=== PATIENT | female | born 1940 | race Caucasian/White ===

== ENCOUNTER 2017-06-15 08:32 | Day surgery (SDC) | payer MEDICARE, OTHER ==
[~2017-06-15 08:32] MED LIST: LACTATED RINGERS 1,000 ML IV ONE
[2017-06-15] MEDS ORDERED: MIDAZOLAM 2 MG/2 ML VIAL IVP ONE (11:09)
[2017-06-15] MEDS ORDERED: fentaNYL 100 MCG/2 ML VIAL IVP ONE (11:09)
[2017-06-15 12:09] VITALS: BP 110/77
== END 2017-06-15 08:33 | disposition home or self-care (01) ==
LOC: SDS 08:32
PROVIDERS: ATTEND Surgery
PROC: 0DB58ZX Excision of Esophagus, Via Natural or Artificial Opening Endoscopic, Diagnostic (ICD-10-PCS; principal; 2017-06-15 09:45)
PROC: 0DBL8ZX Excision of Transverse Colon, Via Natural or Artificial Opening Endoscopic, Diagnostic (ICD-10-PCS; 2017-06-15 09:45)
DX: D50.9 Iron deficiency anemia, unspecified (principal); K29.70 Gastritis, unspecified, without bleeding; K44.9 Diaphragmatic hernia without obstruction or gangrene; K22.8 Other specified diseases of esophagus; D12.3 Benign neoplasm of transverse colon; K64.8 Other hemorrhoids; K57.30 Diverticulosis of large intestine without perforation or abscess without bleeding; Z85.3 Personal history of malignant neoplasm of breast; Z79.82 Long term (current) use of aspirin
CPT/HCPCS: 43239; 45385; J7120

== ENCOUNTER 2017-10-13 13:26 | Outpatient (CLI) | payer MEDICARE, OTHER ==
--- NOTE | 2017-10-13 15:21 | XRAY Report ---
THREE VIEW LEFT TOES: 10/13/2017 CLINICAL INDICATION: Pain in the 1st and 2nd toes. FINDINGS: AP, lateral, and oblique views of the left toes demonstrate no evidence of acute fracture or dislocation. Osteoarthritis is present, with hallux valgus. No radiopaque foreign body is seen in the soft tissues. IMPRESSION: OSTEOARTHRITIS, WITH HALLUX VALGUS. NO EVIDENCE OF ACUTE FRACTURE. TD: 10/13/2017 15:19
--- NOTE | 2017-10-13 15:22 | XRAY Report ---
THREE VIEW LEFT KNEE: 10/13/2017 CLINICAL INDICATION: Pain. FINDINGS: AP, lateral, sunrise views of the left knee demonstrate a total knee replacement in place. There is no evidence of acute fracture or hardware complication. IMPRESSION: LEFT KNEE REPLACEMENT IN PLACE. TD: 10/13/2017 15:21
== END 2017-10-13 13:27 | disposition home or self-care (01) ==
LOC: DI.S 13:26
PROVIDERS: ATTEND Physician Assistant
DX: M19.072 Primary osteoarthritis, left ankle and foot (principal); M20.12 Hallux valgus (acquired), left foot; M25.562 Pain in left knee; Z96.652 Presence of left artificial knee joint
CPT/HCPCS: 73660

== ENCOUNTER 2017-10-17 10:12 | Outpatient (CLI) | payer MEDICARE, OTHER ==
[2017-10-17 18:33] LABS: ALBUMIN 3.6 g/dL (3.2-5.5); ALBUMIN/GLOBULIN RATIO 1.1 (1.0-2.2); BILIRUBIN,TOTAL 0.5 mg/dL (0.2-1.0); CALCIUM 9.1 mg/dL (8.5-10.3); CREATININE 0.9 mg/dL (0.4-1.0); TOTAL PROTEIN 6.9 g/dL (6.7-8.2)
[2017-10-17 18:40] LABS: T4 (THYROXINE) 11.72 ug/dL (6.09-12.23)
[2017-10-17 18:43] LABS: THYROID STIMULATING HORMONE < 0.08 uIU/mL (0.34-5.60)
[2017-10-17 18:50] LABS: TOTAL T3 0.93 ng/mL (0.87-1.78)
== END 2017-10-17 10:13 | disposition home or self-care (01) ==
LOC: LAB.F 10:12
PROVIDERS: ATTEND Physician Assistant
DX: E03.9 Hypothyroidism, unspecified (principal); K29.70 Gastritis, unspecified, without bleeding; I10 Essential (primary) hypertension
CPT/HCPCS: 36415; 80053; 84436; 84443; 84480

== ENCOUNTER 2018-03-15 11:41 | Outpatient (CLI) | payer MEDICARE, OTHER ==
[2018-03-15 17:40] LABS: BASOPHILS # (AUTO) 0.1 10^3/uL (0.0-0.1); BASOPHILS % (AUTO) 1.7 %; EOSINOPHILS # (AUTO) 0.1 10^3/uL (0.0-0.7); EOSINOPHILS % (AUTO) 2.1 %; HGB - HEMOGLOBIN 11.2 g/dL (12.0-16.0); LYMPHOCYTES # (AUTO) 1.3 10^3/uL (1.5-3.5); LYMPHOCYTES % (AUTO) 21.6 %; MEAN CORPUSCULAR HGB CONC 32.8 g/dL (32.0-36.0); MEAN CORPUSCULAR VOLUME 76.1 fL (81.0-99.0); MEAN PLATELET VOLUME 7.5 fL (7.9-10.8); MONOCYTES # (AUTO) 0.8 10^3/uL (0.0-1.0); MONOCYTES % (AUTO) 13.4 %; NEUTROPHILS # (AUTO) 3.7 10^3/uL (1.5-6.6); NEUTROPHILS % (AUTO) 61.2 %; PLT - PLATELET COUNT 428 10^3/uL (130-450); RED BLOOD COUNT 4.47 10^6/uL (4.20-5.40); RED CELL DISTRIBUTION WIDTH 19.4 % (12.0-15.0)
[2018-03-15 18:16] LABS: % IRON SATURATION 7 % (20-50); ALBUMIN 3.9 g/dL (3.2-5.5); ALBUMIN/GLOBULIN RATIO 1.2 (1.0-2.2); ALKALINE PHOSPHATASE 79 IU/L (42-121); ALT ALANINE AMINOTRANSFERASE 12 IU/L (10-60); AST ASPARTATE AMINOTRANSFERASE 19 IU/L (10-42); BILIRUBIN,TOTAL 0.5 mg/dL (0.2-1.0); BUN - BLOOD UREA NITROGEN 15 mg/dL (6-20); CALCIUM 9.1 mg/dL (8.5-10.3); CARBON DIOXIDE - CO2 26 mmol/L (21-32); CHLORIDE 101 mmol/L (101-111); CREATININE 0.9 mg/dL (0.4-1.0); GFR - MDRD 61 (>89); GLUCOSE 86 mg/dL (70-100); IRON 36 ug/dL (28-170); SODIUM 136 mmol/L (135-145); TOTAL IRON BINDING CAPACITY 493 ug/dL (250-450); TOTAL PROTEIN 7.2 g/dL (6.7-8.2); TRANSFERRIN 352 mg/dL (192-382)
[2018-03-15 18:17] LABS: CRP - C-REACTIVE PROTEIN < 1.0 mg/dL (0-1.0); THYROID STIMULATING HORMONE < 0.08 uIU/mL (0.34-5.60)
[2018-03-15 18:19] LABS: FREE T4 (FREE THYROXINE) 1.69 ng/dL (0.58-1.64)
[2018-03-15 18:23] LABS: FERRITIN 5.6 ng/mL (11.0-306.8)
== END 2018-03-15 11:42 | disposition home or self-care (01) ==
LOC: LAB.F 11:41
PROVIDERS: ATTEND Registered Nurse
DX: E03.9 Hypothyroidism, unspecified (principal); E61.1 Iron deficiency; E55.9 Vitamin D deficiency, unspecified; M15.9 Polyosteoarthritis, unspecified
CPT/HCPCS: 36415; 80053; 82306; 82728; 83540; 84439; 84443; 84466; 84481; 85025; 85651; 86140

== ENCOUNTER 2018-07-15 13:03 | Outpatient (CLI) | payer MEDICARE, OTHER ==
--- NOTE | 2018-07-16 11:13 | XRAY Report ---
Reason: LUMBAGO WITH SCIATICA,RIGHT SIDE Procedure Date: 07/15/2018 Accession Number: [id number] / [id number] Procedure: XR - Lumbar Spine 2 View CPT Code: FULL RESULT: EXAM: LUMBOSACRAL SPINE RADIOGRAPHY EXAM DATE: 07/15/2018 01:33 PM. CLINICAL HISTORY: LUMBAGO WITH SCIATICA,RIGHT SIDE. COMPARISONS: None. TECHNIQUE: 2 views. FINDINGS: Alignment: Subtle levoscoliosis of the thoracolumbar spine. Grade 1 posterior listhesis of T11 on T12 and T12 on L1. Bones: Five [id number] lumbar vertebral bodies are present. No fractures or bone lesions. Disks: Severe degenerative disk disease at T12-L1 and mild to moderate degenerative disk disease at L1-L2, L4 and L5 and mild degenerative disk disease at L5-S1. Facets: Facet arthrosis throughout the lumbar spine. Sacroiliac Joints: Unremarkable. Soft Tissues: Normal. The visualized bowel gas pattern is normal. IMPRESSION: 1. Grade 1 posterior listhesis of T11 on T12 and T12 on L1. 2. Subtle levoscoliosis of the thoracolumbar spine. 3. Multilevel mild to severe degenerative disk disease, as above. 4. Facet arthrosis throughout the lumbar spine. RAD[facility]
== END 2018-07-15 13:04 | disposition home or self-care (01) ==
LOC: DI 13:03
PROVIDERS: ATTEND Physician Assistant
DX: M51.17 Intervertebral disc disorders with radiculopathy, lumbosacral region (principal); M47.26 Other spondylosis with radiculopathy, lumbar region; M41.85 Other forms of scoliosis, thoracolumbar region
CPT/HCPCS: 72100

== ENCOUNTER 2018-11-06 11:27 | Outpatient (CLI) | payer MEDICARE, OTHER ==
--- NOTE | 2018-11-06 15:16 | Ultrasound Report ---
Reason: ASYMPTOMATIC VARICOSE VEINS OF BILATERAL LOWER EXR Procedure Date: 11/06/2018 Accession Number: [id number] / [id number] Procedure: US - Duplex Ext Veins Bilateral CPT Code: FULL RESULT: EXAM: BILATERAL LOWER EXTREMITY VENOUS ULTRASOUND EXAM DATE: 11/06/2018 11:32 AM. CLINICAL HISTORY: Asymptomatic varicose veins of bilateral lower extremities. COMPARISON: None. TECHNIQUE: Real-time sonographic vascular imaging was performed by the greenhouse manager through the lower extremities utilizing both color-flow and Doppler spectral analysis. Multiple route sales representative static images were saved for review. FINDINGS: Right: Common Femoral Vein (CFV): Normal. CFV-GSV Junction: Normal. Profunda Femoral Vein (PFV): Normal. Femoral Vein (FV) Prox: Normal. Femoral Vein (FV) Mid: Normal. Femoral Vein (FV) Dist: Normal. Popliteal Vein: Normal. Posterior Tibial Veins: Normal. Peroneal Veins: Normal. Left: Common Femoral Vein (CFV): Normal. CFV-GSV Junction: Normal. Profunda Femoral Vein (PFV): Normal. Femoral Vein (FV) Prox: Normal. Femoral Vein (FV) Mid: Normal. Femoral Vein (FV) Dist: Normal. Popliteal Vein: Normal. Posterior Tibial Veins: There is thrombosis of one of the left posterior tibial veins, portions of which are nonocclusive by color Doppler and other portions of which are occlusive, findings confirmed by noncompressibility. Peroneal Veins: Normal. Other: None. IMPRESSION: Occlusive and nonocclusive venous thrombosis of the left posterior tibial vein. [facility] The call report notification system was initiated by Dr. Ruy Tavera at 03:13 PM on 11/06/2018. ADDENDUM: 11/06/18 15:17 The above call report findings were discussed with Becky Escobedo by Dr. Ruy Tavera at 03:17 PM on 11/06/2018.
== END 2018-11-06 11:28 | disposition home or self-care (01) ==
LOC: DI 11:27
PROVIDERS: ATTEND Nurse Practitioner Family
DX: I82.442 Acute embolism and thrombosis of left tibial vein (principal)
CPT/HCPCS: 93970

== ENCOUNTER 2018-12-19 12:15 | Outpatient (CLI) | payer MEDICARE, OTHER ==
--- NOTE | 2018-12-19 15:51 | XRAY Report ---
Reason: PAIN OF RIGHT SHOULDER JOINT Procedure Date: 12/19/2018 Accession Number: [id number] / [id number] Procedure: XR - Shoulder 3 View RT CPT Code: FULL RESULT: EXAM: RIGHT SHOULDER RADIOGRAPHY EXAM DATE: 12/19/2018 12:31 PM. CLINICAL HISTORY: pain of right shoulder joint. COMPARISON: None. TECHNIQUE: 3 views. FINDINGS: Bones: Normal. No fracture or bone lesion. Joints: The glenohumeral and acromioclavicular joints are normally located. There are degenerative changes of the AC joint. Soft tissues: The visualized hemithorax is unremarkable. No soft tissue swelling. IMPRESSION: Degenerative changes of the AC joint. [facility]
== END 2018-12-19 12:16 | disposition home or self-care (01) ==
LOC: DI 12:15
PROVIDERS: ATTEND Nurse Practitioner Family
DX: M19.011 Primary osteoarthritis, right shoulder (principal)

== ENCOUNTER 2019-02-18 12:57 | Outpatient (CLI) | payer MEDICARE, OTHER ==
--- NOTE | 2019-02-18 22:00 | Ultrasound Report ---
Reason: ACUTE DEEP VEIN THROMBOSIS OF LOWER LIMB Procedure Date: 02/18/2019 Accession Number: [id number] / [id number] Procedure: US - Duplex Ext Veins Left CPT Code: FULL RESULT: EXAM: LEFT LOWER EXTREMITY VENOUS ULTRASOUND EXAM DATE: 02/18/2019 02:07 PM. CLINICAL HISTORY: ACUTE DEEP VEIN THROMBOSIS OF LOWER LIMB. COMPARISON: DUPLEX EXT VEINS BILATERAL 11/06/2018 11:32 AM. TECHNIQUE: Real-time sonographic vascular imaging was performed by the astronomy instructor through the lower extremity utilizing both color-flow and Doppler spectral analysis. Multiple outside sales account representative static images were saved for review. FINDINGS: Common Femoral Vein (CFV): Normal. CFV-GSV Junction: Normal. Profunda Femoral Vein (PFV): Normal. Femoral Vein (FV) Prox: Normal. Femoral Vein (FV) Mid: Normal. Femoral Vein (FV) Dist: Normal. Popliteal Vein: Normal. Posterior Tibial Veins: Normal. Peroneal Veins: Normal. Contralateral Side CFV: Normal. Other: None. IMPRESSION: No evidence for deep venous thrombosis. Previous left posterior tibial vein thrombus has resolved. [facility]
== END 2019-02-18 12:58 | disposition home or self-care (01) ==
LOC: DI 12:57
PROVIDERS: ATTEND Family Medicine
DX: I82.409 Acute embolism and thrombosis of unspecified deep veins of unspecified lower extremity (principal)

== ENCOUNTER 2019-08-01 10:42 | Emergency (ER) | payer MEDICARE, OTHER ==
[2019-08-01 10:52] VITALS: BP 114/87
--- NOTE | 2019-08-01 12:12 | ED Physician Documentation ---
PD HPI UPPER EXT INJURY - Stated complaint Stated Complaint: RT THUMB LAC - Chief complaint Chief Complaint: Laceration - History obtained from History obtained from: Patient - History of Present Illness Location: Right, Finger Type of injury: Laceration (was standing on chair and slipped, catching side of thumb on cuphook, with tearing laceration to side of thumb.) Where injury occurred: Home Timing - onset: Today Timing - details: Abrupt onset Worsened by: Moving, Palpating Associated symptoms: Other (laceration the length of side of thumb.). 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 - Present Medications Home Medications: Ambulatory Orders Medication Instructions Recorded Confirmed Aspirin [Aspirin EC] 81 mg PO DAILY 06/14/17 06/14/17 Gabapentin [Neurontin] 600 mg PO DAILY 06/14/17 06/14/17 Levothyroxine Sodium [Synthroid] 150 mcg PO DAILY 06/14/17 06/14/17 Multivit with Calcium,Iron,Min 1 each PO DAILY 06/14/17 06/14/17 [Multiple Vitamins For Women] - Allergies Allergies/Adverse Reactions: Allergies Allergy/AdvReac Type Severity Reaction Status Date / Time No Known Drug Allergies Allergy Verified 08/01/19 10:52 - Social History Does the pt smoke?: No Smoking Status: Never smoker Does the pt drink ETOH?: No Does the pt have substance abuse?: No PD ED PE NORMAL - Vitals Vital signs reviewed: Yes - General General: Alert and oriented X 3, No acute distress, Well developed/nourished - Derm Derm: Normal color, Warm and dry - Extremities Extremities: Other (ulnar side of right thumb with laceration from MCP to just past DIP, exposing side of muscle and tendon, but no involvement of the deep structures. Small vein seen the length of the wound without tear. She has sensation at tip of thumb. Able to flex and extend well without problems. ) - Neuro Neuro: Alert and oriented X 3, No motor deficit, No sensory deficit Results - Vitals Vitals: Vital Signs - 24 hr 08/01/19 10:48 Temperature 36.5 C Heart Rate 82 Respiratory 18 Rate Blood Pressure 114/87 H O2 Saturation 96 Oxygen O2 Source Room air Procedures - Laceration (location) right thumb laterally on ulnar side. Length in cm: 4 Wound type: Linear, Into subcut fat, Clean Neurovascular status: Sensory intact, Motor intact, Vascular intact Tendon involvement: Tendon intact Anesthesia: Lidocaine 2% Wound Preparation: Irrigated copiously NS, Wound explored, To the base, Wound edges modified. No: FB identified Skin layer closure: Nylon, Running, Size #-0 - enter number (4), Sutures - enter # (14) Other: Patient tolerated well, No complications, Neurovascular intact, Tetanus UTD Complexity: Simple PD MEDICAL DECISION MAKING - ED course Complexity details: considered differential (lac lateral right thumb without deep structures involved. Sutured without problems. ), d/w patient Departure - Departure Disposition: 01 Home, Self Care Clinical Impression: Laceration of right thumb Qualifiers: Encounter type: initial encounter Damage to nail status: with damage Foreign body presence: without foreign body Qualified Code(s): S61.111A - Laceration without foreign body of right thumb with damage to nail, initial encounter Condition: Stable Record reviewed to determine appropriate education?: Yes Instructions: ED Laceration Hand Follow-Up: Rosas Stoll MD [Primary Care Provider] - Comments: It is okay to wash and shower. Clean off the wound twice a day with soap and water, or peroxide and water. Apply some antibiotic ointment to it to keep it moist. Also to watch for signs of infection such as purulence, redness or increasing pain. Return to your primary care or the ER at the specified time for suture removal. Suture removal 10 to 14 days. Gentle range of motion and progress use of the thumb even while the sutures are in place so it is not as stiff. Tylenol if needed for pains. Discharge Date/Time: 08/01/19 13:48
[2019-08-01] MEDS ORDERED: LIDOCAINE 2% 10 ML MDV SUBQ STA (12:39)
[2019-08-01] MEDS ORDERED: LIDOCAINE 2% 10 ML MDV ONE (12:41)
== END 2019-08-01 13:48 | disposition home or self-care (01) ==
LOC: ED 10:42
DX: S61.111A Laceration without foreign body of right thumb with damage to nail, initial encounter (principal); W26.8XXA Contact with other sharp object(s), not elsewhere classified, initial encounter; Y93.89 Activity, other specified; Y92.009 Unspecified place in unspecified non-institutional (private) residence as the place of occurrence of the external cause; Z79.82 Long term (current) use of aspirin
CPT/HCPCS: 12002; 99283

== ENCOUNTER 2019-11-14 14:47 | Outpatient (CLI) | payer MEDICARE, OTHER ==
--- NOTE | 2019-11-14 17:07 | Ultrasound Report ---
Reason: PAIN IN RT LOWER LEG. Procedure Date: 11/14/2019 Accession Number: [id number] / [id number] Procedure: US - Duplex Ext Veins Right CPT Code: Final Report FULL RESULT: EXAM: RIGHT LOWER EXTREMITY VENOUS ULTRASOUND EXAM DATE: 11/14/2019 04:29 PM. CLINICAL HISTORY: PAIN IN RT LOWER LEG. COMPARISON: None. TECHNIQUE: Real-time sonographic vascular imaging was performed by the calciminer through the lower extremity utilizing both color-flow and Doppler spectral analysis. Multiple bottling equipment sales representative static images were saved for review. FINDINGS: Common Femoral Vein (CFV): Normal. CFV-GSV Junction: Normal. Profunda Femoral Vein (PFV): Normal. Femoral Vein (FV) Prox: Normal. Femoral Vein (FV) Mid: Normal. Femoral Vein (FV) Dist: Normal. Popliteal Vein: Normal. Posterior Tibial Veins: Normal. Peroneal Veins: Normal. Contralateral Side CFV: Normal. Other: In region of palpable abnormality there is some mild soft tissue edema, but no mass or fluid collections.. IMPRESSION: No evidence for deep venous thrombosis in the right lower extremity. [facility]
== END 2019-11-14 14:48 | disposition home or self-care (01) ==
LOC: DI 14:47
PROVIDERS: ATTEND Nurse Practitioner Family
DX: M79.661 Pain in right lower leg (principal)

== ENCOUNTER 2020-04-14 13:47 | Outpatient (CLI) | payer MEDICARE, OTHER ==
[2020-04-14] MEDS ORDERED: IOVERSOL 320 50 ML VIAL ONE (13:59)
[2020-04-14] MEDS ORDERED: IOVERSOL 320 100 ML VIAL IVP ONE ×2 (13:59→17:44)
[2020-04-14 14:33] LABS: CALCIUM 9.2 mg/dL (8.5-10.3); CREATININE 0.9 mg/dL (0.4-1.0)
--- NOTE | 2020-04-14 16:15 | CT Report ---
PROCEDURE: Abdomen/Pelvis W INDICATIONS: UMBILICAL HERNIA CONTRAST: IV CONTRAST: Optiray 320 ml: 100 PO CONTRAST: Optiray 320 ml50 TECHNIQUE: After the administration of contrast, 5 mm thick sections acquired from the diaphragms to the sym physis. 5 mm thick coronal and sagittal reformats were acquired. For radiation dose reduction, the following was used: automated exposure control, adjustment of mA and/or kV according to patient size . COMPARISON: None. FINDINGS: Image quality: Excellent. ABDOMEN: Lung bases: Lung bases are clear. Heart size is normal. Solid organs: Liver and spleen are normal in size and enhancement. Gallbladder is within normal knutson its Biliary system is non dilated. There is a 16 mm low-density focus within the pancreatic body/nec k junction (series 3 image 32). There is a 12 mm low-density focus within the lateral aspect of the p ancreatic head (series 3 image 37). No evidence of pancreatic ductal dilatation. No adrenal nodules. Kidneys demonstrate normal size and enhancement, without hydronephrosis. Peritoneum and bowel: There is a large hiatal hernia. Bowel loops demonstrate normal wall thickness a nd caliber. No free fluid or air. Nodes and vessels: No retroperitoneal or mesenteric adenopathy by size criteria. Aorta and inferior vena cava are normal in size. Miscellaneous: A left anterior paramedian fat-containing supraumbilical hernia is present measuring 8 2 mm. There is moderate stranding as well as a small amount of fluid within the fat of the hernia. Th ere is fat stranding within the mesentery just deep to this hernia spanning roughly 66 mm (series 3 i mage 43). PELVIS: Genitourinary: Bladder wall thickness is normal. Miscellaneous: No inguinal hernias or adenopathy. Bones: No suspicious bony lesions. No vertebral body compression fractures. IMPRESSION: 1. Indeterminate low-density foci within the pancreatic parenchyma as described above. Initial furthe r assessment with pancreatic protocol MRI with and without intravenous contrast is recommended. 2. Fat-containing supraumbilical hernia which demonstrates evidence of incarceration, which also exte nds posteriorly to involve the underlying anterior abdominal wall mesenteric fat. 3. Large hiatal hernia. Reviewed by: Teresa Delgado MD on 04/14/2020 4:14 PM PDT Approved by: Teresa Delgado MD on 04/14/2020 4:14 PM PDT Station ID: [id number]
[2020-04-14] MEDS ORDERED: IOVERSOL 320 50 ML VIAL PO ONE (17:44)
== END 2020-04-14 13:48 | disposition home or self-care (01) ==
LOC: DI 13:47
PROVIDERS: ATTEND Nurse Practitioner Family
DX: R93.3 Abnormal findings on diagnostic imaging of other parts of digestive tract (principal); K44.9 Diaphragmatic hernia without obstruction or gangrene; K42.0 Umbilical hernia with obstruction, without gangrene; K42.9 Umbilical hernia without obstruction or gangrene
CPT/HCPCS: 36415; 74177; 80048; Q9967

== ENCOUNTER 2020-04-18 13:56 | Emergency (ER) | payer MEDICARE, OTHER ==
--- NOTE | 2020-04-18 15:05 | ED Physician Documentation ---
PD HPI LOWER EXT INJURY - Stated complaint Stated Complaint: R KNEE PX - Chief complaint Chief Complaint: Ext Problem - History obtained from History obtained from: Patient - History of Present Illness PD HPI LOW EXT INJURY LOCATION: Right, Knee Type of injury: Fall (she was getting up off toilet and her right foot was somewhat asleep from sitting, and it gave out, causing her to land onto right knee anteriorly. Minimally struck forehead. No LOC. Has large local swelling without minutes anterior knee.) Where injury occurred: Home Timing - onset: Today (this morning) Timing - details: Abrupt onset, Still present Worsened by: Moving, Palpating Associated symptoms: Swelling. 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 - Present Medications Home Medications: Ambulatory Orders Medication Instructions Recorded Confirmed Aspirin [Aspirin EC] 81 mg PO DAILY 06/14/17 06/14/17 Gabapentin [Neurontin] 600 mg PO DAILY 06/14/17 06/14/17 Levothyroxine Sodium [Synthroid] 150 mcg PO DAILY 06/14/17 06/14/17 Multivit with Calcium,Iron,Min 1 each PO DAILY 06/14/17 06/14/17 [Multiple Vitamins For Women] - Allergies Allergies/Adverse Reactions: Allergies Allergy/AdvReac Type Severity Reaction Status Date / Time No Known Drug Allergies Allergy Verified 08/01/19 10:52 - Social History Does the pt smoke?: No Smoking Status: Never smoker Does the pt drink ETOH?: No Does the pt have substance abuse?: No PD ED PE NORMAL - Vitals Vital signs reviewed: Yes - General General: Alert and oriented X 3, No acute distress, Well developed/nourished - HEENT HEENT: Atraumatic (no tenderness nor swelling noted on forehead. ), PERRL, EOMI - Neck Neck: Supple, no meningeal sign, No bony TTP - Derm Derm: Normal color, Warm and dry - Extremities Extremities: Other (right knee anteriorly with large local swelling prepatellar area. Prior knee replacement scar noted. ) - Neuro Neuro: No motor deficit, No sensory deficit Results - Vitals Vitals: Vital Signs - 24 hr 04/18/20 04/18/20 14:48 16:02 Temperature 36.3 C L 36.9 C Heart Rate 68 80 Respiratory 20 18 Rate Blood Pressure 132/64 H 139/93 H O2 Saturation 98 100 Oxygen O2 Source Room air - Rads (name of study) right knee Radiology: Prelim report reviewed (knee replacement without disruption of it nor fractures. Prepatellar soft tissue swelling. ), See rad report PD MEDICAL DECISION MAKING - ED course Complexity details: reviewed results, re-evaluated patient (local anesth at lateral area prepatellar swelling. 18G needle used to try to get fluid, but only got about 2 ml, so presume all hematoma. ), considered differential (local contusion with hematoma and can get xray. Likely clotted but can try tapping the swelling to relieve pressure. ), d/w patient Departure - Departure Disposition: 01 Home, Self Care Clinical Impression: Hematoma Fall from slip, trip, or stumble Qualifiers: Encounter type: initial encounter Qualified Code(s): W01.0XXA - Fall on same level from slipping, tripping and stumbling without subsequent striking against object, initial encounter Knee contusion Qualifiers: Encounter type: initial encounter Laterality: right Qualified Code(s): S80.01XA - Contusion of right knee, initial encounter Condition: Stable Record reviewed to determine appropriate education?: Yes Instructions: ED Hematoma Comments: Normal without any disruption of the knee replacement parts. Use a Bebeto wrap or similar wrap on the knee to help reduce swelling. Ice or cool towels periodically. Mostly just going to take time for the hematoma to resolve. With gravity a lot of this will end up causing bruising and swelling into the lower leg even down to the ankle over the next several days. Tylenol ibuprofen or naproxen as needed for pains. Discharge Date/Time: 04/18/20 16:02
[2020-04-18] MEDS ORDERED: LIDOCAINE 1%-EPI 1:100000 20 ML MDV SUBQ STA (15:15)
--- NOTE | 2020-04-18 15:56 | XRAY Report ---
PROCEDURE: Knee 3 View RT INDICATIONS: fell onto knee this AM TECHNIQUE: 3 views of the right knee(s) were acquired. COMPARISON: Right knee radiographs 08/26/2014. FINDINGS: Bones: No fractures or dislocations. Right total knee arthroplasty. No suspicious bony lesions. Soft tissues: Trace joint effusion. No lipohemarthrosis. No suspicious soft tissue calcifications. P repatellar soft tissue swelling. IMPRESSION: No fracture or dislocation. Stable appearance of the right total knee arthroplasty. Prepatellar soft tissue swelling. Trace effusion. Reviewed by: Jewel Beltran MD on 04/18/2020 3:55 PM PDT Approved by: Jewel Beltran MD on 04/18/2020 3:55 PM PDT Station ID: [id number]
[2020-04-18 16:04] VITALS: BP 139/93
== END 2020-04-18 16:02 | disposition home or self-care (01) ==
LOC: ED 13:56
DX: S80.01XA Contusion of right knee, initial encounter (principal); W01.0XXA Fall on same level from slipping, tripping and stumbling without subsequent striking against object, initial encounter; Y93.E8 Activity, other personal hygiene; Y92.002 Bathroom of unspecified non-institutional (private) residence as the place of occurrence of the external cause
CPT/HCPCS: 10140; 99282; 99283

== ENCOUNTER 2020-05-07 08:00 | Outpatient (CLI) | payer MEDICARE, OTHER ==
--- NOTE | 2020-05-07 15:46 | XRAY Report ---
PROCEDURE: Tib/Fib RT INDICATIONS: R LEG PAIN TECHNIQUE: 2 views of the tibia and fibula were acquired. COMPARISON: Knee x-ray 04/18/2020 FINDINGS: Bones: No fractures or dislocations. No suspicious bony lesions. Knee arthroplasty is present with out evidence of hardware fracture or periprosthetic lucency. Soft tissues: No suspicious soft tissue calcifications or masses. IMPRESSION: No visualized acute fracture or dislocation. However, occult injury cannot be excluded. Recommend sahara rt interval imaging follow-up in 7-10 days as clinically indicated for additional evaluation. Reviewed by: Shagufta Ferreira MD on 05/07/2020 3:45 PM PST Approved by: Shagufta Ferreira MD on 05/07/2020 3:45 PM PST Station ID: [id number]
== END 2020-05-07 23:49 | disposition home or self-care (01) ==
LOC: DI.WCP 08:00
PROVIDERS: ATTEND Physician Assistant
DX: M19.049 Primary osteoarthritis, unspecified hand (principal)

== ENCOUNTER 2020-06-03 12:29 | Outpatient (CLI) | payer MEDICARE, OTHER | END 2020-06-03 12:30 | disposition home or self-care (01) | LOC: LAB 12:29 | PROVIDERS: ATTEND Surgery | DX: Z01.818 Encounter for other preprocedural examination (principal); Z20.828 Contact with and (suspected) exposure to other viral communicable diseases; K43.0 Incisional hernia with obstruction, without gangrene | CPT/HCPCS: 93005; U0004 ==

== ENCOUNTER 2020-06-08 06:21 | Day surgery (SDC) | payer MEDICARE, OTHER ==
[2020-06-08] MEDS ORDERED: CEFAZOLIN SODIUM IN 0.9 % NACL 2 GM/100 ML BAG IV ONE (06:31)
[2020-06-08] MEDS ORDERED: ACETAMINOPHEN 1,000 MG/100 ML 100 ML IV ONE ×2 (07:01→08:12)
[2020-06-08] MEDS ORDERED: LACTATED RINGERS 1,000 ML IV ONE ×2 (07:07→09:39)
--- NOTE | 2020-06-08 07:30 | ANESTHESIA ---
Pre-Anesthesia VS, & Labs - Diagnosis Incisional hernia - Procedure Laparoscopic incisional hernia repair Vital Signs: Temp Pulse Resp BP Pulse Ox 36.1 C L 74 16 154/87 H 97 06/08/20 06:30 06/08/20 06:30 06/08/20 06:30 06/08/20 06:30 06/08/20 06:30 Height: 5 ft 5 in Weight (kg): 107.7 kg Body Mass Index: 39.4 BMI Classification: Obese - NPO >8 hours - Is Patient ?: No Home Medications and Allergies Home Medications: Ambulatory Orders Acetaminophen [Tylenol] 650 mg PO Q6H PRN 06/01/20 Liothyronine [Cytomel] 5 mcg PO QDAC 06/01/20 Gabapentin [Neurontin] 300 mg PO TID 06/14/17 Levothyroxine Sodium [Synthroid] 100 mcg PO DAILY 06/14/17 Acetaminophen [Tylenol] 650 mg PO Q6H PRN 06/01/20 Liothyronine [Cytomel] 5 mcg PO QDAC 06/01/20 Allergies/Adverse Reactions: Allergies Allergy/AdvReac Type Severity Reaction Status Date / Time No Known Drug Allergies Allergy Verified 08/01/19 10:52 Anes History & Medical History - Anesthetic History Anesthesia Complications: reports: No previous complications Family history of Anesthesia Complications: Denies Family history of Malignant Hyperthermia: Denies - Medical History Cardiovascular: reports: None Pulmonary: reports: None Gastrointestinal: reports: None Urinary: reports: None Musculoskeletal: reports: Osteoarthritis, Fibromyalgia Endocrine/Autoimmune: reports: HyPOthyroidism Skin: reports: None Smoking Status: Never smoker - Surgical History General: Colonoscopy Eyes Ears Nose Throat (EENT): Cataracts Gynecologic: Hysterectomy, Mastectomy Orthopedic: Knee replacement Dermatologic: Skin cancer surgery Exam General: Alert, Oriented x3, Cooperative Dental: WNL Mouth Openin Fingerbreadth Neck Mobility: Normal Mallampati classification: II Thyromental Distance: 4-6 cm Respiratory: Lungs clear, Normal breath sounds Cardiovascular: Regular rate Mental/Cognitive Status: Alert/Oriented X3, Normal for patient Cognitive Status: Within normal limits Plan Anesthesia Type: General Regional Block: Per Surgeon's request for Post Op pain control Consent for Procedure(s) Verified and Reviewed: Yes Code Status: Attempt Resuscitation ASA classification: 2-Mild systemic disease Is this case an emergency?: No
[2020-06-08] MEDS ORDERED: ceFAZolin 1 GM VIAL ONE (08:00)
[2020-06-08] MEDS ORDERED: LIDOCAINE 1%-EPI 1:100000 20 ML MDV ONE (08:00)
[2020-06-08] MEDS ORDERED: BUPIVACAINE 0.5% PF 30 ML VIAL ONE (08:01)
[2020-06-08] MEDS ORDERED: MIDAZOLAM 2 MG/2 ML VIAL IVP ONE (08:12)
[2020-06-08] MEDS ORDERED: ONDANSETRON 4 MG/2 ML VIAL IVP ONE (08:12)
[2020-06-08] MEDS ORDERED: ePHEDrine 50 MG/ML VIAL IVP ONE (08:12)
[2020-06-08] MEDS ORDERED: NEOSTIGMINE 1 MG/1 ML 10 ML MDV IVP ONE (08:12)
[2020-06-08] MEDS ORDERED: LIDOCAINE-MPF 2% 5 ML VIAL IM ONE (08:12)
[2020-06-08] MEDS ORDERED: PROPOFOL 200 MG/20 ML VIAL IVP ONE (08:12)
[2020-06-08] MEDS ORDERED: ROCURONIUM 50 MG/5 ML VIAL IVP ONE (08:12)
[2020-06-08] MEDS ORDERED: DEXAMETHASONE 4 MG/ML VIAL IVP ONE (08:12)
[2020-06-08] MEDS ORDERED: GLYCOPYRROLATE 1 MG/5 ML VIAL IVP ONE (08:12)
[2020-06-08] MEDS ORDERED: fentaNYL 100 MCG/2 ML VIAL IVP ONE (08:12)
[2020-06-08] MEDS ORDERED: MORPHINE 2 MG/ML CARPUJECT IVP PRN (08:49)
[2020-06-08] MEDS ORDERED: HYDROmorphone 0.5 MG/0.5 ML SYRINGE IVP PRN (08:49)
[2020-06-08] MEDS ORDERED: ONDANSETRON 4 MG/2 ML VIAL IVP PRN ×2 (08:49→09:50)
[2020-06-08] MEDS ORDERED: ePHEDrine 50 MG/ML VIAL IVP PRN (08:49)
[2020-06-08] MEDS ORDERED: NALOXONE 0.4 MG/ML VIAL IVP PRN (08:49)
[2020-06-08] MEDS ORDERED: fentaNYL 100 MCG/2 ML VIAL IVP PRN (08:49)
[2020-06-08] MEDS ORDERED: METOCLOPRAMIDE 10 MG/2 ML VIAL IVP PRN (08:49)
[2020-06-08] MEDS ORDERED: ATROPINE ABBOJECT 1 MG/10 ML SYRINGE IVP PRN (08:49)
[2020-06-08] MEDS ORDERED: LACTATED RINGERS 1,000 ML IV SCH (09:00)
[2020-06-08] MEDS ORDERED: BUPIVACAINE 0.5% PF 30 ML VIAL INFIL ONE ×2 (09:02)
[2020-06-08] MEDS ORDERED: LIDOCAINE 1%-EPI 1:100000 30 ML MDV SUBQ ONE ×2 (09:03)
--- NOTE | 2020-06-08 09:47 | OPERATIVE REPORT ---
Operative Report - General Procedure Date: 06/08/20 Planned Procedure: Laparoscopic repair of incarcerated incisional hernia Pre-Op Diagnosis: Incarcerated incisional hernia Procedure Performed: Laparoscopic repair of incarcerated incisional hernia Post Op Diagnosis: Incarcerated incisional hernia - Procedure Note Primary Surgeon: Brenda Anesthesia Provider: PARRISH Garcia Anesthesia Technique: General ET tube Pathology: Hernia sac to pathology in formalin Estimated Blood Loss (mL): 20 Indications: Symptomatic ventral Incisional hernia Findings: 3 cm ventral defect containing incarcerated omentum Complications: None apparent - Other Other Information/Narrative: After obtaining informed consent, the patient was brought to the operating room and placed in the supine position on the operating table. Following successful induction of general endotracheal anesthesia, appropriate padding of all bony prominences and placement of appropriate monitors, the abdomen was prepped and draped in the standard surgical fashion. A Time Out was held per SCOPE protocol. All elements of the surgical safety checklist were followed before, during, and after the procedure. Following infiltration with local anesthetic to create a field block, an incision was create directly over the hernia near the umbilicus and carried through the skin and subcutaneous tissue to reveal the hernia sack and incarcerated contents. Within this large hernia sack which was entered cautiously and without any inadvertent viscus injury, we noted a knuckle of small bowel and a portion of preperitoneal fat. With great care, this tissue was teased sharply from the surrounding structures using both scalpel and Metzenbaum scissors. The bowel appeared well vascularized and fully viable. The fascia was then dissected to its respective components to allow for the ultimate primary intraperitoneal repair. This procedure was selected due the size of the hernia and the patient's body habitus. A wound protector was placed in the fascial defect and the entire small bowel evaluated through this opening. A 12 mm trocar was placed through the wound protector and the abdomen was insufflated to 15mm of Hg pressure. The camera was placed in the abdominal cavity. Diagnostic laparoscopy revealed upper midline adhesions. These were addressed sharply with laparoscopic scissors until the internal surface of the abdominal wall was free from adhesions with an appropriate surface for mesh placement. Following infiltration with local anesthetic, 4 5mm trocars were placed peripherally. One was placed in each upper quadrant and one in each lower quadrant under direct vision. A Bard Ventralight ST 15 cm circlular implant was chosen for repair. It was rolled and placed through the centrally placed 12 mm port. The peripheral ports were utilized to straighten and flatten the mesh up against the abdominal wall. The scaffold suture was pulled taut via the 12 mm port and we noted good apposition of the mesh to the anterior abdominal wall. The mesh was then fixed to the abdominal wall with absorbable tacks, 20 in total. THis was performed sequentially through the 4 peripheral trocars in a 360 degree fashion. The scaffold suture was then released and the scaffolding removed via the right upper quadrant port. The abdomen was checked for hemostasis. It was irrigated with warm saline solution and aspirated free of all fluid and particulate matter. The trocars were then removed under direct vision and the abdomen was desufflated. The midline wound protector and trocar were the n removed. This left a 3 cm defect with straight flat mesh at the base. The fascia was closed with interrupted 0 Vicryl sutures and the umbilicus reconstructed with 3-0 vicryl. The skin incisions were closed with monocryl and Dermabond was applied to the surface of all incisions. All sponge, needle, and instrument counts were correct at the conclusion of the case. The patient was allowed to awaken from anesthesia without difficulty and taken to the post anesthesia care unit in good condition.
[2020-06-08] MEDS ORDERED: ACETAMINOPHEN 325 MG TABLET PO PRN (09:50)
[2020-06-08] MEDS ORDERED: IBUPROFEN 600 MG TABLET PO PRN (09:50)
[2020-06-08] MEDS ORDERED: oxyCODONE 5 MG TABLET PO PRN (09:50)
--- NOTE | 2020-06-08 10:24 | ANESTHESIA POST OP EVALUATION ---
Anesthesia Post Eval - Post Anesthesia Eval Vitals: Last Vital Signs Temp 36.1 C L 06/08/20 10:10 Pulse 79 06/08/20 10:10 Resp 18 06/08/20 10:10 BP 124/62 06/08/20 10:10 Pulse Ox 96 06/08/20 10:10 CV Function Including HR & BP: positive: Stable Pain Control: positive: Satisfactory Nausea & Vomiting: positive: Negative Mental Status: positive: Patient Participates Respiratory Status: Airway Patent Hydration Status: Satisfactory Anesthesia Complications: positive: None
[2020-06-08 10:53] VITALS: BP 126/91
[2020-06-08] MEDS ORDERED: oxyCODONE 5 MG TABLET ONE (11:16)
== END 2020-06-08 06:22 | disposition home or self-care (01) ==
LOC: SDS 06:21
PROVIDERS: ATTEND Surgery
PROC: 0WUF4JZ Supplement Abdominal Wall with Synthetic Substitute, Percutaneous Endoscopic Approach (ICD-10-PCS; principal; 2020-06-08 07:30)
DX: K43.0 Incisional hernia with obstruction, without gangrene (principal); E03.9 Hypothyroidism, unspecified; E66.9 Obesity, unspecified; Z68.39 Body mass index [BMI] 39.0-39.9, adult
CPT/HCPCS: 49655; A9270; J0131; J0690; J7120

== ENCOUNTER 2020-07-13 14:53 | Outpatient (CLI) | payer MEDICARE, OTHER ==
--- NOTE | 2020-07-13 16:33 | CT Report ---
PROCEDURE: LUMBAR SPINE WO INDICATIONS: LUMBAR RADICULOPATHY TECHNIQUE: Noncontrast 3 mm thick sections acquired from the T12 level to the sacrum. Sagittal and coronal refo rmats were constructed. For radiation dose reduction, the following was used: automated exposure co ntrol, adjustment of mA and/or kV according to patient size. COMPARISON: Lumbar spine x-ray series 07/15/2018. FINDINGS: Image quality: Excellent. Bones: There is mild T12-L1 retrolisthesis. No acute vertebral body compression fractures. No suspi cious lytic or blastic bony lesions. Central spinal caliber is of normal overall caliber. No pars d efects. T12-L1: Loss of disc height. Endplate sclerosis and osteophytosis. Mild, diffuse disc bulge. Mild bi lateral facet hypertrophy. Mild narrowing of the central canal. Severe right and moderate left neural foraminal narrowing with slight compression of the exiting right T12 nerve root. L1-L2: Loss of disc height. Vacuum disc phenomenon. Mild to moderate diffuse disc bulge. Mild bilater al facet hypertrophy. Nbsy-uj-uzvwxzhx narrowing of the central canal. Moderate bilateral neural fora kelsey narrowing. No neural compression. L2-L3: Loss of disc height. Vacuum disc phenomenon. Mild to moderate diffuse disc bulge. Moderate bilateral facet hypertrophy. Moderate narrowing of the central canal. Mild to moderate bilateral neur al foraminal narrowing. No neural compression. L3-L4: Loss of disc height. Vacuum disc phenomenon. Moderate, diffuse disc bulge. Moderate bilatera l facet hypertrophy. Gyug-ec-bfkyavnu narrowing of the central canal. Mild right and moderate left ne ural foraminal narrowing. No neural compression. L4-L5: Loss of disc height. Vacuum disc phenomenon. Mild, diffuse disc bulge. Moderate bilateral fa cet hypertrophy. Tnrt-jc-rflprsjx narrowing of the central canal. Severe bilateral neural foraminal n arrowing with compression of the exiting bilateral L4 nerve roots. L5-S1: Slight loss of disc height. Mild, diffuse disc bulge. Mild bilateral facet hypertrophy. No c entral stenosis. Moderate bilateral neural foraminal narrowing. No neural compression. Soft tissues: No retroperitoneal masses or hematomas. Moderate-sized hiatal hernia. Visualized aort a is normal in caliber. Scattered atherosclerotic calcifications are noted in the visualized abdomina l and pelvic vasculature. IMPRESSION: 1. Multilevel degenerative disc disease. 2. Multilevel facet arthropathy. 3. Moderate L2-L3 central canal narrowing. 4. Severe bilateral L4-L5 neural foraminal narrowing with compression of the exiting bilateral L4 ner ve roots. Severe right T12-L1 neural foraminal narrowing with compression of exiting right T12 nerve root. Reviewed by: Brandi Luna MD, PhD on 07/13/2020 4:32 PM PST Approved by: Brandi Luna MD, PhD on 07/13/2020 4:32 PM PST Station ID: [id number]
== END 2020-07-13 14:54 | disposition home or self-care (01) ==
LOC: DI 14:53
PROVIDERS: ATTEND Nurse Practitioner Family
DX: M51.17 Intervertebral disc disorders with radiculopathy, lumbosacral region (principal); M48.07 Spinal stenosis, lumbosacral region; K44.9 Diaphragmatic hernia without obstruction or gangrene
CPT/HCPCS: 72131

== ENCOUNTER 2020-08-24 11:53 | Outpatient (CLI) | payer MEDICARE, OTHER ==
--- NOTE | 2020-08-24 14:40 | CT Report ---
PROCEDURE: LOWER EXTREMITY WO - LT INDICATIONS: BILATERAL KNEE PAIN TECHNIQUE: Noncontrast 3 mm axial sections acquired of the left knee, with coronal and sagittal reformats. COMPARISON: None. FINDINGS: Image quality: Suboptimal evaluation secondary to streak artifact from arthroplasty hardware. Bones: No acute fracture identified. There is postsurgical change related to left knee arthroplasty. There is expected postoperative alignment. Hardware appears grossly intact. No definite focal osseou s destruction seen. There is diffuse osteopenia Soft tissues: Small joint effusion is present. Incidental varices are noted. IMPRESSION: Overall, grossly expected postoperative appearance of left knee arthroplasty. Small joint effusion Reviewed by: Zaheer Rivas MD on 08/24/2020 2:38 PM PST Approved by: Zaheer Rivas MD on 08/24/2020 2:38 PM PST Station ID: [id number]
--- NOTE | 2020-08-24 14:44 | CT Report ---
PROCEDURE: LOWER EXTREMITY WO - RT INDICATIONS: BILATERAL KNEE PAIN TECHNIQUE: Noncontrast 2 mm axial sections acquired of the right knee, with coronal and sagittal reformats. COMPARISON: Right knee radiographs dated 04/18/2020. FINDINGS: Image quality: Suboptimal due to streak artifact from hardware.. Bones: No acute fracture seen. There is diffuse osteopenia. No definite focal osseous destruction. P ostsurgical changes related to right total knee arthroplasty. There is expected postoperative alignme nt. No definite evidence of loosening although limited evaluation given streak artifact and decreased bone mineralization. Soft tissues: Trace joint effusion. There are superficial varices. IMPRESSION: Expected postoperative alignment of right knee arthroplasty. Trace joint effusion. Reviewed by: Zaheer Rivas MD on 08/24/2020 2:43 PM PST Approved by: Zaheer Rivas MD on 08/24/2020 2:43 PM PST Station ID: [id number]
== END 2020-08-24 11:54 | disposition home or self-care (01) ==
LOC: DI 11:53
PROVIDERS: ATTEND Nurse Practitioner Family
DX: M25.561 Pain in right knee (principal); M25.461 Effusion, right knee; M25.462 Effusion, left knee; Z96.653 Presence of artificial knee joint, bilateral

== ENCOUNTER 2021-02-24 10:18 | Outpatient (CLI) | payer MEDICARE, OTHER ==
--- NOTE | 2021-02-24 12:25 | XRAY Report ---
PROCEDURE: Shoulder 3 View BILAT INDICATIONS: NECK PAIN TECHNIQUE: 6 views of the bilateral shoulders were acquired. COMPARISON: Right shoulder plain films 10/19/18 reviewed.. FINDINGS: Bones: No fractures or dislocations but there is moderate bilateral AC joint osteoarthritis. An old healed midshaft fracture is seen at each clavicle.. No suspicious bony lesions. Visualized ribs genie ear intact. Soft tissues: No suspicious soft tissue calcifications. IMPRESSION: No acute trauma found. What appears to be old healed mid shaft bilateral clavicular frac tures are noted. The comparison plain films from October 2018 showed a similar appearance. Bilateral mo derate AC joint osteoarthritis. Reviewed by: Sundeep Malik MD on 02/24/2021 12:23 PM PDT Approved by: Sundeep Malik MD on 02/24/2021 12:23 PM PDT Station ID: [id number]
--- NOTE | 2021-02-24 12:26 | XRAY Report ---
PROCEDURE: Cervical Spine 2 View INDICATIONS: NECK PAIN TECHNIQUE: 4 view(s) of the cervical spine were acquired. COMPARISON: None. FINDINGS: Bones: No fractures or dislocations to the T1 level. Diffuse demineralization. Incomplete segmentat ion of C2. Degenerative ankylosis of C4-5, severe disc height loss at C5-6. Grade 1 anterolisthesis a t C7-T1. Severe facet arthropathy bilaterally throughout the cervical spine, particularly at C7-T1. C 1 to interval demonstrates degenerative change, grossly normal alignment but suboptimally visualized due to positioning. Soft tissues: No prevertebral soft tissue swelling. IMPRESSION: Severe multilevel degeneration and anterolisthesis at C7-T1. Reviewed by: Terrie Boston MD on 02/24/2021 12:25 PM PDT Approved by: Terrie Boston MD on 02/24/2021 12:25 PM PDT Station ID: [id number]
--- NOTE | 2021-02-24 14:07 | XRAY Report ---
PROCEDURE: Thoracic Spine 2 View INDICATIONS: PAIN IN SHOULDER NECK TECHNIQUE: 2 views of the thoracic spine were acquired. COMPARISON: None. FINDINGS: Bones: No acute fractures or dislocations. No suspicious bony lesions. 12 pairs of ribs are noted, and appear intact where visualized. Multilevel mild to moderate degenerative changes are seen throu ghout the thoracic spine. Soft tissues: No paravertebral stripe thickening. IMPRESSION: No acute osseous abnormality. Multilevel spondylosis. Reviewed by: Hood Shah MD on 02/24/2021 2:06 PM PDT Approved by: Hood Shah MD on 02/24/2021 2:06 PM PDT Station ID: [id number]
== END 2021-02-24 10:19 | disposition home or self-care (01) ==
LOC: DI.S 10:18
PROVIDERS: ATTEND Nurse Practitioner Family
DX: M25.512 Pain in left shoulder (principal); M25.511 Pain in right shoulder; M19.012 Primary osteoarthritis, left shoulder; M19.011 Primary osteoarthritis, right shoulder; M43.13 Spondylolisthesis, cervicothoracic region; M47.812 Spondylosis without myelopathy or radiculopathy, cervical region; M50.322 Other cervical disc degeneration at C5-C6 level; M47.814 Spondylosis without myelopathy or radiculopathy, thoracic region

== ENCOUNTER 2021-03-12 08:00 | Outpatient (CLI) | payer MEDICARE, OTHER ==
--- NOTE | 2021-03-12 19:23 | XRAY Report ---
PROCEDURE: Foot 2 View BILAT INDICATIONS: PAIN IN UNSPECIFIED FOOT TECHNIQUE: 3 views of each foot were acquired. COMPARISON: None FINDINGS: Bones: No fractures or dislocations. No suspicious bony lesions. Metatarsus primus varus. Moderate joint space narrowing and periarticular osteophyte formation at the talonavicular, naviculocuneiform , and first metatarsophalangeal joint, as well as the interphalangeal joints of the digits bilaterall y. Soft tissues: No tibiotalar joint effusion. Achilles tendon appears normal. IMPRESSION: 1. Osteoarthritis. 2. Metatarsus primus varus. Reviewed by: Teresa Delgado MD on 03/12/2021 7:22 PM PDT Approved by: Teresa Delgado MD on 03/12/2021 7:22 PM PDT Station ID: [id number]
== END 2021-03-12 23:59 | disposition home or self-care (01) ==
LOC: DI.S 08:00
PROVIDERS: ATTEND Nurse Practitioner
DX: M19.072 Primary osteoarthritis, left ankle and foot (principal); M19.071 Primary osteoarthritis, right ankle and foot; Q66.212 Congenital metatarsus primus varus, left foot; Q66.211 Congenital metatarsus primus varus, right foot

== ENCOUNTER 2021-05-20 20:40 | Outpatient (CLI) | payer MEDICARE, OTHER ==
--- NOTE | 2021-05-20 21:55 | Ultrasound Report ---
PROCEDURE: Duplex Ext Veins Left INDICATIONS: LEFT LOWER LIMB PAIN TECHNIQUE: Real-time imaging, as well as color and pulse Doppler interrogation, were performed of the lower extr emity deep veins from the inguinal ligament to the popliteal fossa. COMPARISON: None. FINDINGS: The deep veins are normally compressible, and free of intraluminal thrombus. Color and pu lse Doppler demonstrate normal phasic intraluminal flow. There is normal augmentation response to di stal compression maneuver. IMPRESSION: 1. No evidence of deep venous thrombosis in the left lower extremity. Reviewed by: Heath Alonzo MD on 05/20/2021 9:54 PM [facility] Approved by: Heath Alonzo MD on 05/20/2021 9:54 PM [facility] Station ID: [id number]
== END 2021-05-20 20:41 | disposition home or self-care (01) ==
LOC: DI 20:40
PROVIDERS: ATTEND Nurse Practitioner Family
DX: M79.605 Pain in left leg (principal)

== ENCOUNTER 2021-11-08 14:16 | Outpatient (CLI) | payer MEDICARE, OTHER ==
--- NOTE | 2021-11-15 15:30 | Mammography Report ---
UNILATERAL LEFT DIGITAL SCREENING MAMMOGRAM 3D/2D: 11/08/2021 CLINICAL: Routine screening. Routine screening. Personal history of right breast cancer. No prior exams were available for comparison. The tissue of left breast is predominantly fatty. There is a fine amorphous calcification in the left breast anterior depth lateral region seen on the craniocaudal view only. No other significant masses or calcifications are seen in the breast. IMPRESSION: INCOMPLETE: NEEDS ADDITIONAL IMAGING EVALUATION The fine amorphous calcification in the left breast is indeterminate. Spot magnification views are r ecommended. If prior studies can be obtained for comparison, comparison can be made and further work up could possibly be averted. This exam was interpreted at Station ID: [id number]. NOTE: For mammograms, a report in lay terms will be sent to the patient. Approximately 15% of breast malignancies will not be visualized mammographically. In the management of a palpable breast mass, a negative mammogram must not discourage biopsy of a clinically suspicious lesion. Electronically Signed By: Nir Boyce acr/:11/15/2021 14:40:49 ACR BI-RADS Category 0: Incomplete 3340F PARENCHYMAL PATTERN: (F) - The breast(s) demonstrate(s) diffuse fatty replacement. BI-RADS CATEGORY: (0) - 0 RECOMMENDATION: (ADDMAM) - Recommend additional mammographic views. [id number] Immediate follow-up LATERALITY: (B)
== END 2021-11-08 14:17 | disposition home or self-care (01) ==
LOC: DI.S 14:16
DX: Z12.31 Encounter for screening mammogram for malignant neoplasm of breast (principal); Z85.3 Personal history of malignant neoplasm of breast; R92.8 Other abnormal and inconclusive findings on diagnostic imaging of breast

== ENCOUNTER 2022-01-24 13:44 | Outpatient (CLI) | payer MEDICARE, OTHER ==
--- NOTE | 2022-01-24 15:35 | XRAY Report ---
PROCEDURE: Cervical Spine 2 View INDICATIONS: BILATERAL SHOULDER PAIN TECHNIQUE: 2 view(s) of the cervical spine were acquired. COMPARISON: None. FINDINGS: Bones: No fractures or dislocations to the T1 level. No odontoid view. No suspicious bony lesions. A dvanced cervical spondylitic change with extensive cervical facet arthropathy, multilevel disc height loss, and multilevel uncovertebral joint hypertrophy. Soft tissues: No prevertebral soft tissue swelling. IMPRESSION: Advanced cervical spondylitic change. Reviewed by: Romie Ortega MD on 01/24/2022 3:34 PM PDT Approved by: Romie Ortega MD on 01/24/2022 3:34 PM PDT Station ID: [id number]
--- NOTE | 2022-01-24 17:26 | XRAY Report ---
PROCEDURE: Shoulder 3 View BILAT INDICATIONS: BILATERAL SHOULDER PAIN TECHNIQUE: 2 views of both shoulders were performed. COMPARISON: None. FINDINGS: Bones: No fractures or dislocations. No suspicious bony lesions. Moderate degenerative changes of the glenohumeral joint and acromioclavicular joint of both shoulders. The acromioclavicular joints d emonstrate capsular hypertrophy bilaterally. The glenohumeral joints have joint space narrowing and o steophytes bilaterally. Soft tissues: No suspicious soft tissue calcifications. IMPRESSION: Moderate degenerative changes of the glenohumeral joints and acromioclavicular joints of both shoulders. Reviewed by: Nir Boyce on 01/24/2022 5:24 PM PDT Approved by: Nir Boyce on 01/24/2022 5:24 PM PDT Station ID: [id number]
== END 2022-01-24 13:45 | disposition home or self-care (01) ==
LOC: DI.S 13:44
PROVIDERS: ATTEND Nurse Practitioner Family
DX: M19.011 Primary osteoarthritis, right shoulder (principal); M19.012 Primary osteoarthritis, left shoulder; M47.812 Spondylosis without myelopathy or radiculopathy, cervical region

== ENCOUNTER 2022-04-19 19:56 | Emergency (ER) | payer MEDICARE, OTHER ==
[2022-04-19 20:04] VITALS: BP 162/100
--- NOTE | 2022-04-19 20:48 | ED Physician Documentation ---
History of Present Illness - Stated complaint Stated Complaint: HEAD INJ - Chief complaint Chief Complaint: Trauma Hd/Nk - Additonal information Additional information: 81-year-old female was referred to the emergency department for evaluation of closed head injury. She was seen earlier this evening at a local walk-in clinic. Patient had been carrying a box into her uneven basement when she tripped on the threshold falling forward striking her head on the door jam. She did not lose consciousness and is not anticoagulated. She did sustain an approximately 3 cm laceration above her left eyebrow that was closed at the primary clinic. On examination the patient appears very well and is reporting pain simply just above her eye where the laceration is. She is denying neck back hip or arm pain. She does have some pain in her right index toe. I have offered imaging of this and she has declined. The walk-in clinic closed the laceration prior to transfer here. They also updated her tetanus Review of Systems Constitutional: denies: Fever Eyes: reports: Reviewed and negative Throat: reports: Reviewed and negative Cardiac: reports: Reviewed and negative Respiratory: reports: Reviewed and negative GI: reports: Reviewed and negative Skin: reports: Laceration (s) Musculoskeletal: reports: Joint pain (Right index toe). 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 - Present Medications Home Medications: Ambulatory Orders Medication Instructions Recorded Confirmed Gabapentin [Neurontin] 300 mg PO TID 06/14/17 06/01/20 Levothyroxine Sodium [Synthroid] 100 mcg PO DAILY 06/14/17 06/01/20 Acetaminophen [Tylenol] 650 mg PO Q6H PRN 06/01/20 06/01/20 Liothyronine [Cytomel] 5 mcg PO QDAC 06/01/20 06/01/20 Ondansetron Odt [Zofran Odt] 4 mg TL Q6H PRN #10 tablet 06/08/20 oxyCODONE [Roxicodone] 5 mg PO Q4-6H PRN #14 tablet 06/08/20 - Allergies Allergies/Adverse Reactions: Allergies Allergy/AdvReac Type Severity Reaction Status Date / Time No Known Drug Allergies Allergy Verified 04/19/22 20:04 - Social History Does the pt smoke?: No Smoking Status: Never smoker Does the pt drink ETOH?: No Does the pt have substance abuse?: No PD ED PE NORMAL - General General: Alert and oriented X 3, No acute distress. 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 Age-related volume loss and mild white matter chronic small vessel ischemic changes. No acute skull fracture.) cervical CT Radiology: Final report received (No acute cervical spine fracture or dislocation. Degenerative disc disease throughout the cervical spine ) PD MEDICAL DECISION MAKING - ED course Complexity details: reviewed results, re-evaluated patient, considered differential, d/w patient ED course: Very well-appearing a pleasant 81-year-old female presents emergency department on the advice of walk-in clinic for evaluation of closed head injury. She is not anticoagulated but tripped over the door jam threshold today falling forward striking her head. She does have a laceration above her left eye which was closed by the clinic. They also updated her tetanus. She presents very well-appearing reports a mild headache above her eye. She had no vomiting and no focal deficits. She is not anticoagulated. Subsequent CT of her head and neck were without acute findings to suggest intracranial hemorrhage or pathologic fractures. On repeat evaluation the Patient is feeling better would like to be discharged home. We discussed routine care of the laceration as well as emergent return precautions for any concerns of closed head injury. Departure - Departure Disposition: 01 Home, Self Care Clinical Impression: Fall from ground level Closed head injury Qualifiers: Encounter type: initial encounter Qualified Code(s): S09.90XA - Unspecified injury of head, initial encounter Condition: Stable Record reviewed to determine appropriate education?: Yes Instructions: ED Head Injury Closed Comments: Lou came to the emergency department today because you had a fall at home and struck your head on the door jam. The walk-in clinic did a fine job of closing the laceration above your eye. We did do CT scan of your head and neck that did not show any broken bones, skull fractures or bruising or bleeding within the head. Over the next 24 to 72 hours I expect they will be generally sore from your f all. You can continue to take your usual meloxicam and Tylenol as you otherwise would. If at any point you feel that your symptoms are worsening, you develop sudden severe headache, have uncontrolled vomiting, slurred speech, facial droop or weakness in your arms or legs and please return immediately to the emergency department for repeat evaluation.
--- NOTE | 2022-04-19 21:20 | CT Report ---
PROCEDURE: HEAD WO INDICATIONS: GLF TECHNIQUE: Noncontrast 4.5 mm thick angled axial sections acquired from the foramen magnum to the vertex. For r adiation dose reduction, the following was used: automated exposure control, adjustment of mA and/or kV according to patient size. COMPARISON: None FINDINGS: Image quality: Excellent. CSF spaces: Basal cisterns are patent. No extra-axial fluid collections. The ventricles are symmet norm in size and shape. Brain: No intracranial bleeds or masses. There is cerebral volume loss for age, with resultant vent ricular and sulcal prominence. There are periventricular and deep white matter chronic small vessel ischemic changes. There is intracranial internal carotid artery atherosclerosis. Skull and face: Calvarium and visualized facial bones appear intact, without suspicious lesions. Sinuses: Visualized sinuses and mastoids are clear. IMPRESSION: 1. No CT evidence of acute intracranial abnormalities. 2. Age-related volume loss and mild white matter chronic small vessel ischemic changes. 3. No acute skull fracture. Reviewed by: Angel Marrero MD on 04/19/2022 9:18 PM PDT Approved by: Angel Marrero MD on 04/19/2022 9:18 PM PDT Station ID: [id number]
--- NOTE | 2022-04-19 21:22 | CT Report ---
PROCEDURE: CERVICAL SPINE WO INDICATIONS: GLF TECHNIQUE: Noncontrast 3 mm thick sections acquired from the skull base to the T4 level. Sagittal and coronal r eformats were then constructed. For radiation dose reduction, the following was used: automated exp osure control, adjustment of mA and/or kV according to patient size. COMPARISON: 01/24/2022 cervical spine radiograph. FINDINGS: Image quality: Excellent. Bones: No fractures or dislocations. There is straightening of normal cervical lordosis. Loss of di sc height, degenerative endplate changes, dorsal disc osteophyte complex formation and bilateral face t hypertrophic changes are noted throughout cervical spine causing mild central canal stenosis and bi lateral neural foraminal narrowing. Visualized superior ribs are intact. Soft tissues: Prevertebral soft tissues are normal in thickness. No paravertebral hematomas. No ap ical pneumothoraces. Incidentally noted is benign-appearing calcification in the region of right sub mandibular gland which may represent sequela from prior infection/injury. IMPRESSION: 1. No acute cervical spine fracture or dislocation. 2. Degenerative disc disease throughout cervical spine as above. Reviewed by: Angel Peter MD on 04/19/2022 9:21 PM PDT Approved by: Angel Peter MD on 04/19/2022 9:21 PM PDT Station ID: [id number]
== END 2022-04-19 21:48 | disposition home or self-care (01) ==
LOC: ED 19:56
DX: S09.90XA Unspecified injury of head, initial encounter (principal); S01.81XD Laceration without foreign body of other part of head, subsequent encounter; W01.198D Fall on same level from slipping, tripping and stumbling with subsequent striking against other object, subsequent encounter
CPT/HCPCS: 99282; 99284

== ENCOUNTER 2022-11-18 14:00 | Outpatient (CLI) | payer MEDICARE, OTHER ==
[2022-11-18] MEDS ORDERED: iohexoL-300 100 ML VIAL ONE (14:40)
[2022-11-18 15:00] LABS: CALCIUM 9.3 mg/dL (8.5-10.3); CREATININE 0.9 mg/dL (0.4-1.0); POTASSIUM 4.5 mmol/L (3.5-5.0)
[2022-11-18] MEDS ORDERED: iohexoL-300 100 ML VIAL IVP ONE (15:42)
--- NOTE | 2022-11-18 16:33 | CT Report ---
PROCEDURE: ABDOMEN W/WO INDICATIONS: MASS OF PANCREAS CONTRAST: 100ml omni 300 TECHNIQUE: 4 phase scanning was performed. After the administration of intravenous contrast, 5 mm thick section s acquired from the diaphragm to the symphysis. 5 mm coronal and sagittal reformats were acquired. For radiation dose reduction, the following was used: automated exposure control, adjustment of mA a nd/or kV according to patient size. COMPARISON: CT abdomen and pelvis 04/14/2020. FINDINGS: Image quality: Excellent. Lung bases and heart: No pleural fusion. Moderate hiatal hernia. Liver: No focal lesion. Gallbladder and biliary tree: No radiopaque stones or wall thickening. No biliary dilation. Spleen: No splenomegaly. Pancreas: -No pancreatic ductal dilation. -Hypodense lesion in the head of the pancreas measuring 1.2 x 1 cm, (4/36). -Possible ill-defined hypodense mass in the head of the pancreas measuring 2.2 x 1.3 cm, (4/29). This abuts the SMV. -Possible ill-defined hypodense mass in the head of the pancreas posteriorly measuring 1.1 x 0.6 cm, (4/31) Adrenals: No adrenal nodule. Kidneys and ureters: No hydronephrosis. No renal cystic lesion which requires follow up. No solid mas s. Bowel and peritoneum: No bowel distension. No pathologic free fluid. Lymph nodes: No central or retroperitoneal adenopathy. Vessels: No infrarenal aortic aneurysm. Mild calcified plaque. Accessory right hepatic artery off of the SMA. No filling defect in the portal vein or SMV. Bones: No aggressive osseous abnormality. Severe DDD. Scoliosis. Other: No significant ventral hernia. IMPRESSION: Ill-defined hypodense lesion or lesions in the head of the pancreas concerning for pancreatic adenoca rcinoma. No pancreatic ductal dilatation. No biliary ductal dilatation. No adenopathy. MRI pancreas or ERCP with EUS and FNA may be helpful for further characterization. Reviewed by: Jewel eBltran MD on 11/18/2022 4:32 PM PDT Approved by: Jewel Beltran MD on 11/18/2022 4:32 PM PDT Station ID: [id number]
== END 2022-11-18 14:01 | disposition home or self-care (01) ==
LOC: DI 14:00
PROVIDERS: ATTEND Nurse Practitioner Family
DX: K86.89 Other specified diseases of pancreas (principal)
CPT/HCPCS: 36415; 74170; 80048; Q9967

== ENCOUNTER 2022-11-22 14:45 | Outpatient (CLI) | payer MEDICARE, OTHER ==
--- NOTE | 2022-11-18 15:36 | DEXA Report ---
PROCEDURE: Dexa Spine and/or Hip INDICATIONS: OSTEOPENIA TECHNIQUE: Dual energy x-ray absorptiometry (DXA) was performed on a [employer] System. Regions measur ed are the AP Spine, femoral neck, and if needed forearm. COMPARISON: None FINDINGS: Lumbar Spine: Bone Mineral Density 1.679 g/cm/cm,T score 4.0. Left Femoral Neck: Bone Mineral Density 0.74 g/cm/cm, T score -1.8. Left Hip: Bone Mineral Density 0.847 g/cm/cm,T score -1.3. (T score greater or equal to -1.0: NORMAL) (T score from -1.1 to -2.4: OSTEOPENIA) (T score less than or equal to -2.5 to: OSTEOPOROSIS) Impression: By WHO criteria, this patient has low bone density (osteopenia). Patients with diagnosis of osteoporosis or osteopenia should have regular bone mineral density assess ment. For those eligible for Medicare, routine testing is allowed once every 2 years. Testing frequ ency can be increased for patients who have rapidly progressing disease or for those who are receivin g medical therapy to restore bone mass. Reviewed by: Angel Peter MD on 11/18/2022 2:35 PM [facility] Approved by: Angel Peter MD on 11/18/2022 2:35 PM KATHY Station ID: [id number]
== END 2022-11-22 23:59 | disposition home or self-care (01) ==
LOC: DI 14:45
PROVIDERS: ATTEND Nurse Practitioner Family
DX: M85.89 Other specified disorders of bone density and structure, multiple sites (principal)

== ENCOUNTER 2023-09-05 12:32 | Outpatient (CLI) | payer MEDICARE, OTHER ==
[2023-09-05] MEDS ORDERED: IOVERSOL 320 100 ML VIAL IVP ONE (13:42)
[2023-09-05 14:15] LABS: CALCIUM 9.7 mg/dL (8.5-10.3); CREATININE 0.9 mg/dL (0.6-1.3); POTASSIUM 4.4 mmol/L (3.5-4.5)
[2023-09-05] MEDS: IOVERSOL 320 100 ML VIAL IVP ONE (19:49)
--- NOTE | 2023-09-07 11:25 | CT Report ---
PROCEDURE: Abdomen W/WO INDICATIONS: MASS OF PANCREAS CONTRAST: 100 cc Optiray 320. TECHNIQUE: Axial images of the abdomen were obtained precontrast, arterial phase, and portal venous phase from t he diaphragm to the iliac crests. Coronal and sagittal reformats were acquired. For radiation dose r eduction, the following was used: automated exposure control, adjustment of mA and/or kV according t o patient size. COMPARISON: CT abdomen 11/18/2022. CT abdomen pelvis 04/14/2020. FINDINGS: Image quality: Diagnostic. Pancreas: Ill-defined hypodense lesion in the head of the pancreas measuring 2.5 x 2.2 cm, (14/36), p reviously remeasured 2.2 x 1.6 cm, and more remotely 1.9 x 1.6 cm on 04/14/2020. Cyst in the head of the pancreas measuring 1.8 cm, (8/44), previously 1.1 cm, and more remotely 0.7 c m in 2019. No mural nodule or enhancement. Ill-defined hypodensity in the posterior head of the pancreas measuring approximately 0.9 cm, (14/38) , previously 1.1 cm, and more remotely 0.7 cm. No peripancreatic fluid collection. Pancreatic duct: No pancreatic ductal dilatation. Biliary ducts: Not dilated. Arterial evaluation: Superior mesenteric artery: No vessel contact. Celiac axis: No vessel contact. Common hepatic artery: No vessel contact. Venous evaluation: Main portal vein: Abutment ("d180). No vessel narrowing. Superior mesenteric vein: Abutment ("d180). No vessel narrowing. Thrombus within vein: Absent. Venous collaterals: Absent. Extra-pancreatic evaluation: Liver lesions: No suspicious liver lesions. Peritoneal or omental nodules: Absent. Ascites: Absent. Suspicious lymph nodes: Absent. Other extrapancreatic disease (invasion of adj structures): Absent. OTHER Lung bases and heart: Moderate-sized hiatal hernia. No pleural effusion. Liver: No focal lesion. Gallbladder and biliary tree: Unremarkable. No biliary dilation. Spleen: No splenomegaly. Adrenals: No nodule. Kidneys and ureters: No kidney stones. No hydronephrosis.. Bowel and peritoneum: No bowel distension. No pathologic free fluid. Lymph nodes: No central or retroperitoneal adenopathy. Vessels: Unremarkable. Bones: No aggressive osseous abnormality. Multilevel DDD. IMPRESSION: Small ill-defined lesions in the head of the pancreas, 2 of which are increased in size. Pancreatic a denocarcinoma is in the differential diagnosis. ERCP with EUS and FNA would be helpful for further characterization if not yet performed. MRI pancrea s may also help characterize the lesions. No pancreatic or biliary ductal dilatation. No adenopathy. No metastatic disease identified. Reviewed by: Jewel Beltran MD on 09/07/2023 11:[address] [facility] Approved by: Jewel Beltran MD on 09/07/2023 11:[address] [facility] Station ID: [id number]
== END 2023-09-05 12:33 | disposition home or self-care (01) ==
LOC: DI 12:32
PROVIDERS: ATTEND Nurse Practitioner Family
DX: K86.89 Other specified diseases of pancreas (principal)
CPT/HCPCS: 36415; 74160; 74170; 80048; Q9967

== ENCOUNTER 2023-09-05 13:50 | Outpatient (CLI) | payer MEDICARE, OTHER | END 2023-09-05 13:51 | disposition home or self-care (01) | LOC: LAB 13:50 | PROVIDERS: ATTEND Nurse Practitioner Family | DX: K86.89 Other specified diseases of pancreas (principal) ==

== ENCOUNTER 2023-09-29 15:46 | Outpatient (CLI) | payer MEDICARE, OTHER ==
[~2023-09-29 15:46] MED LIST changes: +GADOTERATE MEGLUMINE 10 MMOL/20 ML VIAL ONE; +GADOTERATE MEGLUMINE 5 MMOL/10 ML VIAL ONE; -LACTATED RINGERS 1,000 ML IV ONE
[2023-09-29] MEDS: GADOTERATE MEGLUMINE 10 MMOL/20 ML VIAL IVP ONE (16:59)
--- NOTE | 2023-10-02 11:18 | MRI Report ---
PROCEDURE: Abdomen W/WO INDICATIONS: MASS OF PANCREAS CONTRAST: clariscan 21.4 ml TECHNIQUE: Coronal ultra fast SE, axial 2D spoiled GE in- and [id number]; axial breath-hold T2 fast SE. Dynam ic axial ultra fast GE during the administration of contrast; post-contrast coronal ultra fast GE or 2D spoiled GE with fat saturation from the hepatic dome to the iliac crests. Optional diffusion weig hted imaging and ADC may be performed. COMPARISON: CT 09/05/2023, 11/18/2022. FINDINGS: Image quality: Excellent. Lung bases and heart: Large hiatal hernia. Liver: No solid mass. Gallbladder and biliary tree: No radiopaque stones or wall thickening. No biliary dilation. Spleen: No splenomegaly. Pancreas: Complex cystic mass in the pancreatic head measuring 3.3 x 3.3 cm, previously 2.2 x 1.6 cm in 2022 using similar measuring techniques. There is heterogeneous T2 signal, with questionable enhan cing component measuring 2.0 x 1.9 cm (series 19, image 46), and thin internal septations. No pancrea tic ductal dilation. Adrenals: No adrenal nodule. Kidneys and ureters: No hydronephrosis. No renal cystic lesion which requires follow up. No solid mas s. Bowel and peritoneum: No bowel distension. No pathologic free fluid. Diverticulosis without evidence of diverticulitis. Lymph nodes: No central or retroperitoneal adenopathy. Vessels: No infrarenal aortic aneurysm. Bones: No aggressive osseous abnormality. Other: No significant ventral hernia. IMPRESSION: Complex mass in the pancreatic head which has demonstrated interval growth since 2022. Enhancing comp onents are present. Findings are concerning for malignancy, possibly malignant transformation of an I PMN. Recommend GI referral and consider EBUS/FNA. Large hiatal hernia. Reviewed by: Dipesh Beltrán MD on 10/02/2023 11:17 AM PDT Approved by: Dipesh Beltrán MD on 10/02/2023 11:17 AM PDT Station ID: [id number]
== END 2023-09-29 15:47 | disposition home or self-care (01) ==
LOC: DI 15:46
PROVIDERS: ATTEND Nurse Practitioner Family
DX: K86.89 Other specified diseases of pancreas (principal)
CPT/HCPCS: 74183; A9575